=== PATIENT | male | born 2000 | race Caucasian/White ===

== ENCOUNTER → 2021-09-28 15:25 | Outpatient (BNVA) | payer OTHER, MEDICAID, SELFPAY | PROVIDERS: Visit Provider Psychiatry & Neurology Psychiatry | DX: Z79.899 Other long term (current) drug therapy; Z03.89 Encounter for observation for other suspected diseases and conditions ruled out; J01.90 Acute sinusitis, unspecified; F41.9 Anxiety disorder, unspecified; R45.86 Emotional lability | CPT/HCPCS: 80053; 80061; 83036; 84443 ==

== ENCOUNTER 2022-02-16 00:13 | Emergency (ER) | payer OTHER, SELFPAY ==
[2022-02-16] VITALS (13 sets, daily range): BP systolic 111–146; BP diastolic 77–94; PULSE 83–102; RESP 20–26; TEMP 36.8; O2SAT 95–100; BMI 25.1
--- NOTE | 2022-02-16 00:15 | XRR_ITS ---
PROCEDURE INFORMATION: Exam: XR Right Shoulder Exam date and time: 02/16/2022 12:19 AM Age: 21 years old Clinical indication: Injury or trauma; Right; Patient HX: Patient was using a hoe gardening tool and felt his RT shoulder dislocate. Visual deformity to RT shoulder. Patient states history of dislocation to RT shoulder. ; Additional info: Pain TECHNIQUE: Imaging protocol: XR Right shoulder. Views: 2 or more views. COMPARISON: No relevant prior studies available. FINDINGS: Bones/joints: Anterior inferior dislocation of the right glenohumeral joint. No definite fractures are seen but assessment is limited on the views provided. Soft tissues: Radiographically unremarkable. XR/XR shoulder RT min 2V* [id number] IMPRESSION: Right shoulder dislocation.
--- NOTE | 2022-02-16 00:23 | W.ED.EXTPRO ---
HPI - Extremity Problem General: Chief complaint: Extremity Injury, Upper Stated complaint: RT shoulder dislocated Time Seen by Provider: 02/16/22 00:18 Source: patient Mode of arrival: ambulatory Limitations: no limitations History of Present Illness: 21-year-old male states he was working out in the garden roughly an hour ago swinging at home and states that he dislocated his right shoulder he states he had dislocated the same shoulder couple years ago playing baseball. He is obvious deformity to shoulder states that he has pain he rates a 5 out of 10 is worse with movement improved with rest denies any other injuries. Associated symptoms: Deny chest pain, fever(s) or rash Review of Systems Const: Denies: fever(s), chills, body aches or change in appetite Eyes: Denies: blurry vision or eye discomfort ENMT: Denies: throat pain or dental pain Card: Denies: chest pain Resp: Denies: dyspnea GI: Denies: abdominal pain, nausea, vomiting or diarrhea : Denies: dysuria Musc: Reports: extremity pain Skin/Breast: Denies: rash Neuro: Denies: headache(s) Psych: Denies: depression Rainer/Lymph: Denies: easy bruising All/Imm: Denies: urticaria PFSH ED PFSH: Medical History Anxiety Mood swings Psychiatric care Social History Smoking and tobacco status: current every day smoker smokeless tobacco Physical Exam Const: COMMON NORMALS: no acute distress, patient oriented x3 and healthy appearing HENMT: COMMON NORMALS: normocephalic and atraumatic HEAD & SCALP: normocephalic and atraumatic Eye: COMMON NORMALS: Equal, round and reactive pupils present and EOMs intact bilaterally PUPIL: Yes Equal, round and reactive pupils present Neck/C-Spine: COMMON NORMALS: full ROM and supple Chest: COMMONS NORMALS: normal inspection of the chest and normal palpation of entire chest wall Resp: COMMON NORMALS: normal respiratory effort, No retractions, No use of accessory muscles and clear to auscultation bilaterally AUSCULTATION: clear to auscultation bilaterally Cardio: COMMON NORMALS: regular rate, regular rhythm and No murmurs present (Cardio) RATE: regular rate RHYTHM: regular rhythm GI: COMMON NORMALS: Normal to inspection, nondistended, normoactive bowel sounds present, Soft to palpation, non-tender and no masses PALPATION: Yes Soft to palpation Extremity: NARRATIVE EXTREMITY EXAM: deformity to right shoulder with dislocation distal pulses and sensation intact Neuro: COMMON NORMALS: patient oriented x3, moves all extremities and no focal motor deficits Psych: COMMON NORMALS: mental status grossly normal, Normal thought process present and cooperative THOUGHT PROCESS: Normal thought process present Skin: COMMON NORMALS: no rashes or lesions noted and no wounds GENERAL SKIN EXAM: no rashes or lesions noted Procedures Orthopedic Joint Reduction Joint #1: Time Out Performed: Yes Side: right Joint Reduction Location: shoulder Analgesia: procedural sedation Shoulder Technique Used (if applicable): traction/counter-traction Post-reduction neuro exam: intact Post-reduction vascular: intact Post Reduction X-Ray Obtained: Yes Post Reduction X-Ray Results: reduced Splint Applied: Yes Patient Tolerated Procedure: well Procedural Sedation Indication: fracture/dislocation reduction ASA Class: I Time of Last PO Intake: 22:00 Preparation: professor of nursing applied and pulse oximeter IV Propofol dose (mg): 200 Patient Tolerated Procedure: well Complications: none Course Vital Signs: Vital signs: Vital Signs Temperature 98.2 F 02/16/22 00:26 Pulse Rate 92 02/16/22 00:45 Respiratory Rate 26 H 02/16/22 00:45 Blood Pressure 146/91 02/16/22 00:26 Pulse Oximetry 96 02/16/22 00:26 MDM - Extremity (Nontraumatic) Medical Decision Making Patient presents here with a shoulder dislocation patient had a shoulder successfully reduced here patient placed in a sling and is to follow-up with orthopedics return if worsening understand agree to plan. Discharge Plan Discharge Patient Disposition: Home Clinical Impression: Closed dislocation of right shoulder Qualifiers: Encounter type: initial encounter Qualified Code(s): S43.004A - Unspecified dislocation of right shoulder joint, initial encounter Condition: Stable Prescriptions: New hydrocodone-acetaminophen 5-325 mg tablet 1 tab PO Q6H PRN (Reason: pain) Qty: 14 0RF No Action montelukast [Singulair] 10 mg tablet 10 mg PO DAILY Qty: 30 0RF amoxicillin 500 mg capsule 500 mg PO TID 0RF Label Comments: completed ABT aripiprazole 5 mg tablet See Rx Instructions .ROUTE .COMPLEX Qty: 60 3RF Rx Instructions: take 1.5 tabs po q hs x 6 nights then take two tabs po q hs if tolerated hydroxyzine pamoate 25 mg capsule 25 mg PO TID PRN (Reason: anxiety or sleep) 30 Days Qty: 90 3RF Discharge Orders: Discharge ED (Routine); Ordered 02/16/22 Ordered By: Anson Calderón Referrals: Leonidas Wells DO [Physician] - 1-3 days Discharge Diet: Advance as tolerated Discharge Activity: Resume usual activity Patient Instructions: Shoulder Dislocation (ED), Opioid Safety Coding Level of Care Code ED Conservation Technician for Fabio Fwjessica Exam Comprehensive
--- NOTE | 2022-02-16 00:42 | XRR_ITS ---
PROCEDURE INFORMATION: Exam: XR Right Shoulder Exam date and time: 02/16/2022 12:40 AM Age: 21 years old Clinical indication: Injury or trauma; Other: Dislocation; Right; Patient HX: Check S/P RT shoulder reduction. ; Additional info: Post reduction TECHNIQUE: Imaging protocol: XR Right shoulder. Views: 2 or more views. COMPARISON: CR (CHEST, ) 02/16/2022 12:19 AM FINDINGS: Bones/joints: Relocation of the glenohumeral joint. No fractures are identified. Soft tissues: Normal. XR/XR shoulder RT min 2V* [id number] IMPRESSION: Reduction of glenohumeral joint.
[2022-02-16] MEDS: propofol 10 mg/mL SDV 20 mL 100 MG IVP ×2 (00:45→00:50)
--- NOTE | 2022-02-16 15:57 | DCPLANNER ---
Addendum entered by Aaliyah Nath 02/25/22 06:52: Patient had a follow up appointment scheduled for 02.17.[address] Wells at ortho - patient did attend appointment. Original Note: manager local had message to schedule a follow up appointment for patient with ortho. manager local sent patients information to the front office staff at ortho. Patients information will be printed and reviewed. Clinic will call patient with appointment information.
== END 2022-02-16 01:51 | disposition home or self-care (01) ==
PROVIDERS: Emergency Provider Emergency Medicine
DX: S43.004A Unspecified dislocation of right shoulder joint, initial encounter (principal); X58.XXXA Exposure to other specified factors, initial encounter
CPT/HCPCS: 23650; 73030; 99152; 99284; J2704

== ENCOUNTER → 2022-02-17 15:23 | Outpatient (BNVA) | payer OTHER, MEDICAID, SELFPAY | PROVIDERS: Referring Provider Emergency Medicine; Visit Provider Orthopaedic Surgery | DX: S43.004A Unspecified dislocation of right shoulder joint, initial encounter (principal); X50.9XXA Other and unspecified overexertion or strenuous movements or postures, initial encounter | CPT/HCPCS: 73030 ==

== ENCOUNTER 2022-03-01 06:00 | Outpatient (RCR) | payer OTHER, SELFPAY | END 2022-03-17 23:59 | disposition home or self-care (01) | LOC: SPT 06:00 | PROVIDERS: PCP Orthopaedic Surgery; Referring Provider Orthopaedic Surgery; Visit Provider Orthopaedic Surgery | DX: S43.004D Unspecified dislocation of right shoulder joint, subsequent encounter (principal) | CPT/HCPCS: 97110; 97162 ==